=== PATIENT | male | born 2000 | race Caucasian/White ===

== ENCOUNTER → 2022-03-09 | Outpatient (CLI) | payer OTHER | END | disposition home or self-care (01) | LOC: LAB 11:53 → LAB SHORT 11:53 | DX: L08.0 Pyoderma (principal) | CPT/HCPCS: 87070; 87205 ==

== ENCOUNTER 2022-06-01 07:07 | Day surgery (SDC) | payer OTHER ==
[~2022-06-01] VITALS: Ht 190.5 cm; Wt 102.0 kg
[~2022-06-01 07:07] MED LIST: [UNRECOGNIZED DRUG - OTHER] TOP
--- NOTE | 2022-06-01 12:04 | NUR ---
PT AWAKE AND TALKING. PT ON RM AIR. MOMN AT BEDSIDE. PT TOLERATING PO INTAKE.
== END 2022-06-01 22:43 | disposition home or self-care (01) ==
LOC: ORSCMMR 07:07 → ORD 09:15 → ORSCMMR 09:15
PROVIDERS: Surgery
PROC: 0HX8XZZ Transfer Buttock Skin, External Approach (ICD-10-PCS; principal; 2022-06-01 09:15)
DX: L05.91 Pilonidal cyst without abscess (principal); F84.0 Autistic disorder
CPT/HCPCS: 88304; A9270; J1100; J1885; J2250; J2405; J2704; J3010; J7120